=== PATIENT | female | born 1935 | race Caucasian/White ===

== ENCOUNTER 2022-01-02 17:16 | Observation (INO) ==
[2022-01-02] MEDS ORDERED: Ondansetron ODT 4 MG TAB.RAPDIS SL PRN (19:40)
[2022-01-02] MEDS ORDERED: Naloxone 0.4 MG/ML INJ IVP PRN (19:40)
[2022-01-02] MEDS ORDERED: Melatonin 3 MG TABLET PO PRN (19:40)
[2022-01-02] MEDS ORDERED: 0.9 % Sodium Chloride 1,000 ML IVC SCH (19:45)
[2022-01-02] MEDS: Apixaban 5 MG TABLET PO SCH (20:35)
[2022-01-03 01:45] LABS: Hematocrit 37.3 % (35.3-44.9); Hemoglobin 12.6 g/dL (11.5-15.4); Mean Corpuscular HGB Conc 33.8 g/dL (31.6-35.5); Mean Corpuscular Hemoglobin 32.8 pg (28.0-33.3); Mean Corpuscular Volume 97.1 fL (83.0-100.0); Mean Platelet Volume 9.4 fL (9.4-12.4); Platelet Count 202 K/mcL (140-400); Red Blood Count 3.84 M/mcL (3.82-4.97); Red Cell Distribution Width 13.1 % (11.5-14.5); White Blood Count 6.1 K/mcL (4.3-11.1)
[2022-01-03 01:52] LABS: INR 1.8; Prothrombin Time 20.5 Seconds (9.4-12.1)
[2022-01-03 01:55] LABS: Activated Partial Thrombo Time 37.1 Seconds (26.0-36.0)
[2022-01-03 01:56] LABS: BUN/Creatinine Ratio 21 (6-26); Blood Urea Nitrogen 15 mg/dL (8-23); Calcium 9.1 mg/dL (8.6-10.3); Carbon Dioxide 27 mEq/L (23-29); Chloride 102 mEq/L (98-107); Cholesterol 179 mg/dL (< 200); Glucose 109 mg/dL (70-105); HDL Cholesterol 90 mg/dL (40-59); LDL Cholesterol,Calculated 63 mg/dL (< 100); Magnesium 2.2 mg/dL (1.6-2.6); Osmolality,Calculated 285 (280-300); Phosphorous 2.7 mg/dL (2.7-4.5); Potassium 3.5 mEq/L (3.5-5.1); Sodium 137 mEq/L (136-145); Triglycerides 130 mg/dL (< 150); eGFR For African Americans > 60 (> 60); eGFR For Non-African Americans > 60 (> 60)
[2022-01-03] MEDS ORDERED: carvediloL 6.25 MG TABLET PO SCH (08:00)
[2022-01-03] MEDS: Apixaban 5 MG TABLET PO SCH (08:47)
[2022-01-03] MEDS ORDERED: amLODIPine 5 MG TABLET PO SCH (09:00)
[2022-01-03] MEDS ORDERED: *HR* Digoxin 0.125 MG TABLET PO SCH (09:00)
[2022-01-03 14:39] LABS: Adenovirus Not Detected (Not Detect); Bordetella Pertussis Not Detected (Not Detect); Chlamydophila pneumoniae Not Detected (Not Detect); Coronavirus 229E Not Detected (Not Detect); Coronavirus HKU1 Not Detected (Not Detect); Coronavirus NL63 Not Detected (Not Detect); Coronavirus OC43 Not Detected (Not Detect); Human Metapneumovirus Not Detected (Not Detect); Human Rhinovirus/Enterovirus Not Detected (Not Detect); Influenza A Subtype 2009 H1 Not Detected (Not Detect); Influenza B Not Detected (Not Detect); Mycoplasma pneumoniae Not Detected (Not Detect); Parainfluenza Virus 1 Not Detected (Not Detect); Parainfluenza Virus 2 Not Detected (Not Detect); Parainfluenza Virus 3 Not Detected (Not Detect); Parainfluenza Virus 4 Not Detected (Not Detect); Respiratory Syncytial Virus Not Detected (Not Detect); SARS-CoV-2 Not Detected (Not Detect)
[2022-01-03 15:14] VITALS: BP 161/79; PULSE 74; TEMP 97.5; O2SAT 93
[2022-01-04] MEDS ORDERED: Bumetanide 1 MG TABLET PO SCH (09:00)
[2022-01-04] MEDS ORDERED: Aspirin Enteric Coated 81 MG Tablet PO SCH (09:00)
== END 2022-01-03 15:50 | disposition home or self-care (01) ==
LOC: 3ANU → SUATTDRO 19:08
PROVIDERS: ADMIT Internal Medicine; ATTEND Nurse Practitioner